=== PATIENT | female | born 1985 | race Two or more races ===

== ENCOUNTER 2017-11-25 19:54 | Emergency (ER) | payer SELFPAY ==
[2017-11-25 20:01] VITALS: BP 135/93; RESP 16; TEMP 98; O2SAT 96
[2017-11-25 20:30] VITALS: PULSE 112
--- NOTE | 2017-11-25 20:40 | ED PDOC ---
HPI: Psych/Substance Abuse Time Seen by Provider: 11/25/17 20:03 Chief Complaint (Nursing): Anxiety History Per: Patient (32 yo female with h/o anxiety since late teens who presents to the ER because she feels anxious and cannot function. She has been prescribed different meds in the past. She is currently taking Lexapro 20mg daily and Ativan as needed. 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 Her is away at present. Her family is in [place]. She admits to having 5 alcoholic drinks today to RN.) History/Exam Limitations: no limitations Past Medical History Reviewed: Historical Data, Nursing Documentation, Vital Signs Vital Signs: Last Vital Signs Temp 98.0 F 11/25/17 19:58 Pulse 112 H 11/25/17 20:29 Resp 16 11/25/17 19:58 BP 135/93 H 11/25/17 19:58 Pulse Ox 96 11/25/17 19:58 - Medical History PMH: Anxiety, Bipolar Disorder - Surgical History Surgical History: No Surg Hx - Family History Family History: States: No Known Family Hx - Living Arrangements Living Arrangements: With Family - Allergies Allergies/Adverse Reactions: Allergies Allergy/AdvReac Type Severity Reaction Status Date / Time Sulfa (Sulfonamide Allergy RASH Verified 11/25/17 19:58 Antibiotics) Review of Systems ROS Statement: Except As Marked, All Systems Reviewed And Found Negative Constitutional: Negative for: Fever Cardiovascular: Negative for: Chest Pain Psych: Positive for: Anxiety, Depression. Negative for: Suicidal ideation, Other Physical Exam - Reviewed Nursing Documentation Reviewed: Yes Vital Signs Reviewed: Yes - Physical Exam Appears: Positive for: Well Head Exam: Positive for: ATRAUMATIC, NORMAL INSPECTION, NORMOCEPHALIC Skin: Positive for: Normal Color Eye Exam: Positive for: EOMI Neck: Positive for: Normal Cardiovascular/Chest: Positive for: Regular Rate, Rhythm Respiratory: Positive for: CNT, Normal Breath Sounds Gastrointestinal/Abdominal: Positive for: Normal Exam Back: Positive for: Normal Inspection Extremity: Positive for: Normal ROM Neurologic/Psych: Positive for: Alert, Oriented - ECG O2 Sat by Pulse Oximetry: 96 Medical Decision Making Medical Decision Making: patient seen by crisis. not found to be a threat to self or others. patient walked out of the hospital. Disposition - Clinical Impression Clinical Impression: Anxiety Doctor Will See Patient In The: Office - Disposition Disposition: Left W/O Treatment Disposition Time: 20:45 Condition: STABLE Instructions: Anxiety, Adult (DC) Forms: [employer] (Czech)
== END 2017-11-25 20:56 | disposition left against medical advice (07) ==
LOC: H.ER 19:54
DX: F41.9 Anxiety disorder, unspecified (principal)
CPT/HCPCS: 81025; 99281; G0480

== ENCOUNTER 2018-02-12 10:07 | Emergency (ER) | payer BC ==
[2018-02-12 10:41] VITALS: BMI 21.2
[2018-02-12] MEDS ORDERED: Promethazine 25 MG in Sodium Chloride 0.9% 50 ML IVPB STA (12:18)
[2018-02-12] MEDS ORDERED: DiphenhydrAMINE 50 mg/ml Inj IVP STA (12:19)
--- NOTE | 2018-02-12 12:28 | ED PDOC ---
HPI: Headache Time Seen by Provider: 02/12/18 11:28 Chief Complaint (Nursing): Headache Chief Complaint (Provider): NEWSOME History Per: Patient History/Exam Limitations: no limitations Additional Complaint(s): Pt reports frontal NEWSOME X 2 days, was evaluated at [facility] yesterday, given Toradol IM with good relief of pain, returned to [facility] today due to return of pain and referred to ED. As per [facility] referral, pt with NEWSOME and mild rhinorrhea. Denies fever, visual changes, photophobia, sudden onset, neck stiffness, paresthesias, weakness. Past Medical History Reviewed: Nursing Documentation, Vital Signs Vital Signs: Last Vital Signs Temp 98 F 02/12/18 10:40 Pulse 98 H 02/12/18 10:40 Resp BP 109/75 02/12/18 10:40 Pulse Ox 99 02/12/18 10:40 - Medical History PMH: Anxiety, Bipolar Disorder - Family History Family History: States: Unknown Family Hx - Living Arrangements Living Arrangements: With Family - Social History Current smoker - smoking cessation education provided: No - Immunization History Hx Tetanus Toxoid Vaccination: Yes Hx Influenza Vaccination: No Hx Pneumococcal Vaccination: No - Home Medications Home Medications: Ambulatory Orders Medication Instructions Recorded Amoxicillin/Clavulanate [Augmentin 1 tab PO BID #19 tab 02/12/18 875 MG-125 MG] Naproxen [Naprosyn] 500 mg PO BID PRN #15 tablet 02/12/18 - Allergies Allergies/Adverse Reactions: Allergies Allergy/AdvReac Type Severity Reaction Status Date / Time Sulfa (Sulfonamide Allergy RASH Verified 11/25/17 19:58 Antibiotics) Review of Systems Constitutional: Negative for: Fever, Chills Eyes: Negative for: Vision Change ENT: Positive for: Nose Congestion Cardiovascular: Negative for: Chest Pain, Palpitations Respiratory: Negative for: Cough, Shortness of Breath Gastrointestinal: Negative for: Nausea, Vomiting, Abdominal Pain, Diarrhea Genitourinary Female: Negative for: Dysuria, Hematuria Musculoskeletal: Negative for: Neck Pain, Back Pain Skin: Negative for: Rash, Lesions Neurological: Positive for: Headache. Negative for: Weakness, Numbness, Incoordination, Change in Speech, Confusion, Seizures, Altered Mental Status, Dizziness Physical Exam - Reviewed Nursing Documentation Reviewed: Yes Vital Signs Reviewed: Yes - Physical Exam Appears: Positive for: Well, No Acute Distress Head Exam: Positive for: ATRAUMATIC, NORMAL INSPECTION Skin: Positive for: Normal Color, Warm, Dry Eye Exam: Positive for: Normal appearance, EOMI, PERRL Neck: Positive for: Normal, Painless ROM, Supple ((-) Kernig's sign, (-) Brudzinksi's sign) Cardiovascular/Chest: Positive for: Regular Rate, Rhythm Respiratory: Positive for: Normal Breath Sounds Back: Positive for: Normal Inspection Extremity: Positive for: Normal ROM Neurologic/Psych: Positive for: 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 Negative for: Motor/Sensory Deficits, Aphasia, Facial Droop - ECG O2 Sat by Pulse Oximetry: 99 - Progress ED Course And Treament: Pt states she feels better. Re-evaluation Time: 14:31 Condition: Improved Medical Decision Making Medical Decision Makin yo female with NEWSOME. - CT head - Benadryl - Phenergan - IVF Accession No. 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 HISTORY: Frontal NEWSOME COMPARISON: None available. TECHNIQUE: Axial computed tomography images were obtained through the head/brain without intravenous contrast. Radiation dose: Total exam DLP = 902.86 mGy-cm. This CT exam was performed using one or more of the following dose reduction techniques: Automated exposure control, adjustment of the mA and/or kV according to patient size, and/or use of iterative reconstruction technique. FINDINGS: HEMORRHAGE: No intracranial hemorrhage. BRAIN: Rubin-white matter differentiation is preserved. There is no mass, mass effect or abnormal extra-axial fluid collection VENTRICLES: The ventricles are normal in size, shape and configuration. CALVARIUM: Unremarkable. PARANASAL SINUSES: There is mild mucosal thickening in the left frontal sinus, right sphenoid chamber and fluid in the left sphenoid chamber. The remaining included paranasal sinuses are predominantly clear. MASTOID AIR CELLS: Predominantly clear. OTHER FINDINGS: None. IMPRESSION: No acute intracranial abnormality. Fluid in the left sphenoid chamber may represent acute sinusitis in the appropriate clinical setting. Mild chronic left frontal and right sphenoid sinusitis. Disposition - Clinical Impression Clinical Impression: Acute headache, Acute sinusitis - Disposition Referrals: [facility] [Outside] [facility] [Outside] Disposition: Routine/Home Disposition Time: 15:03 Condition: IMPROVED Prescriptions: Amoxicillin/Clavulanate [Augmentin 875 MG-125 MG] 1 tab PO BID #19 tab Naproxen [Naprosyn] 500 mg PO BID PRN #15 tablet PRN Reason: Pain, Moderate (4-7) Instructions: Acute Headache (ED), Sinusitis in Adults Forms: [facility] (Croatian)
[2018-02-12] MEDS ORDERED: DiphenhydrAMINE 50 mg/ml Inj ONE (12:43)
--- NOTE | 2018-02-12 13:29 | CT ---
PROCEDURE: CT HEAD WITHOUT CONTRAST. HISTORY: Frontal NEWSOME COMPARISON: None available. TECHNIQUE: Axial computed tomography images were obtained through the head/brain without intravenous contrast. Radiation dose: Total exam DLP = 902.86 mGy-cm. This CT exam was performed using one or more of the following dose reduction techniques: Automated exposure control, adjustment of the mA and/or kV according to patient size, and/or use of iterative reconstruction technique. FINDINGS: HEMORRHAGE: No intracranial hemorrhage. BRAIN: Rubin-white matter differentiation is preserved. There is no mass, mass effect or abnormal extra-axial fluid collection VENTRICLES: The ventricles are normal in size, shape and configuration. CALVARIUM: Unremarkable. PARANASAL SINUSES: There is mild mucosal thickening in the left frontal sinus, right sphenoid chamber and fluid in the left sphenoid chamber. The remaining included paranasal sinuses are predominantly clear. MASTOID AIR CELLS: Predominantly clear. OTHER FINDINGS: None. IMPRESSION: No acute intracranial abnormality. Fluid in the left sphenoid chamber may represent acute sinusitis in the appropriate clinical setting. Mild chronic left frontal and right sphenoid sinusitis.
[2018-02-12] MEDS ORDERED: Amoxicillin-Clav 875-125 mg Tab PO STA (15:04)
[2018-02-12] MEDS ORDERED: Amoxicillin-Clav 875-125 mg Tab PO ONE (15:22)
[2018-02-12 15:36] VITALS: BP 127/68; PULSE 75; RESP 16; TEMP 98; O2SAT 100
== END 2018-02-12 15:36 | disposition home or self-care (01) ==
LOC: H.ER 10:07
DX: R51 Headache (principal); J01.90 Acute sinusitis, unspecified; F31.9 Bipolar disorder, unspecified; F41.9 Anxiety disorder, unspecified
CPT/HCPCS: 70450; 96374; 99285; J1200; J2550